=== PATIENT | female | born 1975 | race Caucasian/White ===

== ENCOUNTER 2020-11-03 11:30 | Emergency (ER) | payer MEDICAID ==
[~2020-11-03] VITALS: Ht 172.7 cm; Wt 65.0 kg
[2020-11-03] MEDS ORDERED: ACETAMINOPHEN 325MG TABLET PO ONE (12:00)
[2020-11-03] MEDS ORDERED: IBUP-2029 MT (13:01)
[2020-11-03] MEDS ORDERED: ACET650T37 MT (13:01)
[2020-11-03 13:06] VITALS: BP 128/60
== END 2020-11-03 13:08 | disposition home or self-care (01) ==
LOC: ER 11:30
DX: S20.211A Contusion of right front wall of thorax, initial encounter (principal); W01.0XXA Fall on same level from slipping, tripping and stumbling without subsequent striking against object, initial encounter; Y93.18 Activity, surfing, windsurfing and boogie boarding; Y92.89 Other specified places as the place of occurrence of the external cause
CPT/HCPCS: 71101; 99283

== ENCOUNTER 2022-06-15 13:39 | Emergency (ER) | payer MEDICAID, OTHER ==
[~2022-06-15] VITALS: Ht 172.7 cm; Wt 74.0 kg
[~2022-06-15 13:39] MED LIST: ACET-3163 MT; IBUP-2029 MT
[2022-06-15 13:55] VITALS: BP 152/47
[2022-06-15] MEDS ORDERED: TETANUS, DIPHTHERIA, PERTUSSIS VAC/PF 0.5ML (>10YR OLD) IM ONE (16:00)
[2022-06-15] MEDS ORDERED: BACITRACIN ZINC OINT UDPKT TOP ONE (16:00)
[2022-06-15] MEDS ORDERED: ACET-2708 MT (16:58)
[2022-06-15] MEDS ORDERED: LIDOCAINE HCL 1% 20ML VIAL (Pyxis) INJ INFIL ONE (17:00)
== END 2022-06-15 17:38 | disposition home or self-care (01) ==
LOC: ER 13:39
DX: S61.211A Laceration without foreign body of left index finger without damage to nail, initial encounter (principal); Z13.9 Encounter for screening, unspecified; W45.8XXA Other foreign body or object entering through skin, initial encounter; Y93.89 Activity, other specified; Y92.89 Other specified places as the place of occurrence of the external cause; Y99.8 Other external cause status
CPT/HCPCS: 12001; 73130; 81025; 90471; 90715; 99283

== ENCOUNTER 2023-03-15 11:21 | Emergency (ER) | payer OTHER ==
[~2023-03-15] VITALS: Ht 172.7 cm; Wt 77.0 kg
[~2023-03-15 11:21] MED LIST changes: +ACET-2708 MT
[2023-03-15 11:31] VITALS: BP 143/67; PULSE 87; RESP 17; TEMP 98.9; O2SAT 99
[2023-03-15] MEDS ORDERED: ACET-2708 PO ×3 (12:16→12:24)
[2023-03-15] MEDS ORDERED: DOCU100T MT ×3 (12:16→12:24)
[2023-03-15] MEDS ORDERED: POLY510P31 MT ×3 (12:16→12:24)
== END 2023-03-15 12:40 | disposition home or self-care (01) ==
LOC: ER 11:31
DX: K59.00 Constipation, unspecified (principal)
CPT/HCPCS: 99282

== ENCOUNTER 2024-08-03 13:07 | Emergency (ER) | payer MEDICAID, OTHER ==
[~2024-08-03] VITALS: Ht 172.7 cm; Wt 72.6 kg
[~2024-08-03 13:07] MED LIST changes: +ACET-2708 PO; +DOCU100T MT; +POLY510P31 MT
[2024-08-03 13:10] VITALS: O2SAT 100
[2024-08-03 13:11] VITALS: BP 144/71; PULSE 95; RESP 16; TEMP 36.7; O2SAT 98
[2024-08-03] MEDS ORDERED: ACET-2708 MT (16:03)
== END 2024-08-03 16:46 | disposition home or self-care (01) ==
LOC: ER 13:07
DX: S93.409A Sprain of unspecified ligament of unspecified ankle, initial encounter (principal); Z79.899 Other long term (current) drug therapy; X58.XXXA Exposure to other specified factors, initial encounter; Y93.89 Activity, other specified; Y92.89 Other specified places as the place of occurrence of the external cause; Y99.8 Other external cause status
CPT/HCPCS: 73610; 99283